=== PATIENT | female | born 2005 | race Caucasian/White ===

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

== ENCOUNTER 2024-03-22 14:35 | Emergency (ER) | payer OTHER, SELFPAY ==
[2024-03-22 15:15] VITALS: BP 120/69; PULSE 77; RESP 20; TEMP 36.9; O2SAT 96; BMI 27.3
--- NOTE | 2024-03-22 15:29 | ED_ITS ---
Discharge Plan Disposition Patient Disposition: Home, Self-Care Condition: Good Prescriptions Prescriptions: New azithromycin [Zithromax Z-Turner] 250 mg tablet See Rx Instructions .ROUTE .COMPLEX 5 Days Qty: 6 0RF Rx Instructions: For 250 mg dose pack: take 500 mg today (day 1), then 250 mg for 4 days (days 2-5) methylprednisolone [Medrol (Turner)] 4 mg tablets,dose pack See Rx Instructions .Route .COMPLEX 6 Days Qty: 21 0RF Rx Instructions: taper pack; Referrals Follow up/Referrals: Provider,Referral, MD [Primary Care Provider] - See instructions Activity Restrictions/Add. Instructions Additional Instructions/Restrictions: *Monitor Temp, Over the counter Motrin or Tylenol as directed/as needed Tylenol every 4 hours and Motrin every 6 hours (as long as your family doctor has told you that you can take it) for fever or pain. and straight to ER if unable to lower temp less than 101.0 after medication given *Warm salt water gargles may help to soothe the throat *Throat Lozenges? *Warm fluids like tea with honey may help to soothe the throat? *Sleep elevated *Humidifier/Vaporizer Take medication as prescribed Follow up IMMEDIATELY for new or worsening symptoms or no Noticeable improvement over the next 48-72 hours. 911 for difficulty breathing or swallowing Clinical Impressions Clinical Impression: Sinusitis Instructions Patient Instructions: DI for Sinusitis, Sinusitis Print Language Print Language: Icelandic Discharge ED Provider: Rachel Castaneda [facility] General Stated complaint: head congestion cough Mode of Arrival: Ambulatory Source of Information: Patient Limitations: No Limitations Time Seen by Provider: 03/22/24 15:29 Description of Symptoms (Recalled from Triage Doc. by RN): PATIENT C/O CONGESTION AND COUGH X 1 WEEK HEENT Symptoms (Recalled from RN notes): Yes Resp Symptoms (Recalled from RN notes): Yes Skin Symptoms (Recalled from RN notes): No MS Symptoms (Recalled from RN notes): No Functional Status (Recalled from RN notes): WNL History of Present Illness Provider Complaint: Patient states that she has been having sinus pain and pressure under her eyes, head congestion and cough for about a week now States today wasnt any better so she came in to get checked Related Data Previous Rx's ?Medication ?Instructions ?Recorded azithromycin 250 mg tablet See Rx Instructions PO .COMPLEX 5 03/22/24 (Zithromax Z-Turner) days #6 tabs methylprednisolone 4 mg tablets in See Rx Instructions .Route 03/22/24 a dose pack (Medrol (Turner)) .COMPLEX 6 days #21 tabs Allergies Allergy/AdvReac Type Severity Reaction Status Date / Time Penicillins Allergy Intermediate Hives Verified 01/19/23 17:51 Worker's Comp Is this a Worker's Comp case?: No PFSH [facility] Disclaimer: The information contained in this section may have been updated after the patient was seen, as this information can be updated by other users. Medical History (Updated 03/22/24 @ 15:39 by Rachel Castaneda APRN) Pelvic pain Depression Anxiety Asthma Surgical History No history of previous surgery Family History Other No significant family history Social History Smoking Status: Never smoker alcohol intake: never substance use type: denies use current occupational status: student Travel in the last 8 weeks: None Have you lived/traveled outside US in past 30 days?: No Contact w/someone who lives/traveled outside US past 30 days?: No Exposure to someone with infectious disease in past 14 days?: No Do you have a fever (greater than 100.4 F or 38 C)?: No Have you tested positive for COVID-19: No Exposed to someone with COVID-19 in past 14 days?: No Do you have a sore throat?: No Do you have a cough?: Yes Do you have any weakness?: No Do you have any diarrhea?: No Are you experiencing any unusual bleeding?: No Do you have any muscle aches/pain?: No Do you have any abdominal pain?: No Are you experiencing loss of taste or smell?: No ROS Obtained: Yes All systems reviewed & no additional complaints except as d ocumented and Yes Systems reviewed as appropriate & no additional complaints except as documented Constitutional Constitutional: Reports system reviewed and no additional complaints, except as documented and Reports as per HPI ENT Ears, Nose, Mouth, and Throat: Reports system reviewed and no additional complaints, except as documented, Reports as per HPI, Reports sinus pain and Reports sinus pressure Cardiovascular Cardiovascular: Reports system reviewed and no additional complaints, except as documented and Reports as per HPI Respiratory Respiratory: Reports system reviewed and no additional complaints, except as documented, Reports as per HPI and Reports cough Gastrointestinal Gastrointestingal: Reports system reviewed and no additional complaints, except as documented and as per HPI Physical Exam General General appearance: alert and in no apparent distress ENT ENT exam: Present mucous membranes moist Expanded ENT Exam Nose exam: Present sinus tenderness Throat exam: Present other (PND noted ) Respiratory Respiratory exam: Present normal lung sounds bilaterally; Absent respiratory distress or wheezes Cardiovascular Cardiovascular exam: Present regular rate, normal rhythm and normal heart sounds Abdominal Exam Abdominal exam: Present soft and normal bowel sounds; Absent distention or tenderness Neurological Exam Neurological exam: Present alert, oriented X3 and normal gait Medical Decision Making Medical Records Screening: Per USPSTF and CDC recommendations, given the prevalence of disease in our region, it is our hospital?s policy to screen for HIV and viral Hepatitis for all patients aged 18 and over and those with ongoing risk factors. Amrco Antonio Inquiry Pt receiving controlled substance: No Marco Antonio was queried for this patient: No Vital Signs: 03/22/24 15:15 Temperature 98.4 F Temperature Source Oral Pulse Rate [Left Brachial] 77 Respiratory Rate 20 Blood Pressure [Left Arm] 120/69 Blood Pressure Mean [Left Arm] 86 Blood Pressure Source [Left Arm] Automatic Cuff Blood Pressure Position [Left Arm] Sitting 02 Sat by Pulse Oximetry 96 Oxygen Delivery Method Room Air
[2024-03-22 15:43] VITALS: BP 120/69; PULSE 77; RESP 20; TEMP 36.9; O2SAT 96
== END 2024-03-22 15:48 | disposition home or self-care (01) ==
PROVIDERS: Emergency Provider Nurse Practitioner
DX: J01.90 Acute sinusitis, unspecified (principal); R09.81 Nasal congestion; R05.9 Cough, unspecified
CPT/HCPCS: 99212; G0381

== ENCOUNTER 2024-07-27 09:50 | Emergency (ER) | payer OTHER, SELFPAY ==
[2024-07-27 09:58] VITALS: BP 132/89; PULSE 101; RESP 18; TEMP 37; O2SAT 98; BMI 27.3
--- NOTE | 2024-07-27 10:19 | ED_ITS ---
<Statement entered by Seema Puentes DO - 07/27/24 11:19> I was consulted by the [place], and we discussed the complexity of the problems being addressed. I approved the treatment and management plan for this patient's care in the emergency department, thus performing a substantive portion of the medical decision making. 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 Seema Puentes DO Discharge Plan Disposition Patient Disposition: Home, Self-Care Condition: Good Prescriptions Prescriptions: New ondansetron 4 mg tablet,disintegrating 4 mg PO Q8H PRN (Reason: nausea and vomiting) Qty: 10 0RF No Action sertraline 50 mg tablet PO ergocalciferol (vitamin D2) 1,250 mcg (50,000 unit) capsule PO Referrals Follow up/Referrals: Sushma Ham APRN [Primary Care Provider] - See instructions Activity Restrictions/Add. Instructions Additional Instructions/Restrictions: Monitor temperature. Seek treatment if fever develops. Follow-up immediately if new or worse symptoms worsen or no noticeable improvement over 48 hours. Increase fluids such as water, Gatorade, Powerade, juice or Pedialyte with limited formula/dietary in children No food is okay as long as you are drinking. Once ready to eat start bland such as bananas, rice, applesauce, toast. Contagious until no diarrhea, vomiting, fever times 48 hours without medication Avoid antidiarrheals unless told otherwise. Best to let the virus run its course. Follow-up immediately for new or worsening symptoms or no noticeable improvement over the next 48 hours. Clinical Impressions Clinical Impression: Vomiting Qualifiers: Vomiting type: unspecified Nausea presence: without nausea Qualified Code(s): R11.11 - Vomiting without nausea Instructions Patient Instructions: DI for Vomiting -- Adult Print Language Print Language: Greek Discharge ED Provider: Seema Puentes General Adult HPI General Chief complaint: Recheck/Abnormal Lab/Rx Stated complaint: overheated, vomiting Time Seen by Provider: 07/27/24 10:06 Mode of Arrival: Ambulatory Source of Information: Patient Description of Symptoms (Recalled from ER Triage Doc. by RN): pt presents to the ED after overheating yesterday and vomiting x3. pt reports she feels okay today and has no complaints. pt's reports her mother is concerned and wants her to be checked out. History of Present Illness HPI narrative: 19-year-old female presents for overheating yesterday at her boyfriend's house and vomiting 3 times. Patient states no complaints today and she is feeling fine she just wanted checked out to see if she had a stomach virus Related Data Home Medications ?Medication ?Instructions ?Recorded ?Confirmed ergocalciferol (vitamin D2) 1,250 PO 05/16/24 05/16/24 mcg (50,000 unit) capsule sertraline 50 mg tablet mg PO 05/16/24 05/16/24 Previous Rx's ?Medication ?Instructions ?Recorded ondansetron 4 mg disintegrating 4 mg PO Q8H PRN nausea and 07/27/24 tablet vomiting #10 tabs Allergies Allergy/AdvReac Type Severity Reaction Status Date / Time Penicillins Allergy Intermediate Hives Verified 05/16/24 11:05 [facility] Disclaimer: The information contained in this section may have been updated after the patient was seen, as this information can be updated by other users. Medical History , [employer]) Pelvic pain Depression Anxiety Asthma Surgical History , [employer]ELD [employer]IE[employer]) No history of previous surgery Family History , [employer]F) No significant family history Social History , [employer]) Smoking Status: Never smoker alcohol intake: never substance use type: denies use current occupational status: student Travel in the last 8 weeks?: None Have you lived/traveled outside US in past 30 days?: No Contact w/someone who lives/traveled outside US past 30 days?: No Exposure to someone with infectious disease in past 14 days?: No Do you have a fever (greater than 100.4 F or 38 C)?: No Have you tested positive for COVID-19?: No Exposed to someone with COVID-19 in past 14 days?: No Do you have a sore throat?: No Do you have a cough?: No Do you have any weakness?: No Do you have any diarrhea?: No Are you experiencing any unusual bleeding?: No Do you have any muscle aches/pain?: No Do you have any abdominal pain?: No Are you experiencing loss of taste or smell?: No Other Medical History Have you received the Flu Vaccine for this season: No Have you received the Pneumonia Vaccine: No ROS Obtained: Yes Systems reviewed as appropriate & no additional complaints except as documented Physical Exam General General appearance: alert and in no apparent distress ENT ENT exam: Present normal exam Respiratory Respiratory exam: Present normal lung sounds bilaterally Cardiovascular Cardiovascular exam: Present regular rate and normal rhythm Abdominal Exam Abdominal exam: Present soft and normal bowel sounds; Absent distention or tenderness Neurological Exam Neurological exam: Present alert and oriented X3 Skin Skin exam: Present warm and intact Medical Decision Making Medical Records Medical records reviewed: Yes I reviewed the patient's medical records. Screening: Per USPSTF and CDC recommendations, given the prevalence of disease in our region, it is our hospital?s policy to screen for HIV and viral Hepatitis for all patients aged 18 and over and those with ongoing risk factors. Marco Antonio Inquiry Pt receiving controlled substance: No Marco Antonio was queried for this patient: No Vital Signs: 07/27/24 09:58 Temperature 98.6 F Temperature Source Oral Pulse Rate [Right] 101 H Respiratory Rate 18 Blood Pressure [Right Arm] 132/89 Blood Pressure Mean [Right Arm] 103 Blood Pressure Source [Right Arm] Automatic Cuff Blood Pressure Position [Right Arm] Supine 02 Sat by Pulse Oximetry 98 Oxygen Delivery Method Room Air Medical Decision Narrative: In summary patient is a 19-year-old female who presents to the emergency department for evaluation of vomiting x 3 yesterday and overheating.. Patient is hemodynamically stable upon arrival, afebrile. Unremarkable physical exam. Differential diagnosis includes overeating, viral syndrome. Upon repeat evaluation patient is asymptomatic and symptoms have resolved completely. Given this patient appropriate discharge at this time will discharge home with some Zofran and instructions to return if symptoms return. Critical Care Critical Care Time Critical Care Time: No
[2024-07-27 11:04] VITALS: BP 122/93; PULSE 110; RESP 17; TEMP 36.8; O2SAT 97
== END 2024-07-27 11:05 | disposition home or self-care (01) ==
PROVIDERS: Emergency Provider Emergency Medicine; PCP Nurse Practitioner Family
DX: R11.11 Vomiting without nausea (principal)
CPT/HCPCS: 99283

== ENCOUNTER 2025-02-24 17:50 | Emergency (ER) | payer OTHER, SELFPAY ==
[2025-02-24 17:54] VITALS: BP 136/97; PULSE 114; RESP 18; TEMP 37.2; O2SAT 98; BMI 29.4
[2025-02-24 17:57] VITALS: BP 137/80; PULSE 99; RESP 16; O2SAT 100
[2025-02-24 18:04] LABS: Coronavirus 19, PCR Not Detected (NotDetected); Influenza A, PCR Not Detected (NotDetected); Influenza B, PCR Not Detected (NotDetected)
--- NOTE | 2025-02-24 18:11 | ED_ITS ---
<Statement entered by Ayden Last DO - 02/24/25 23:25> I was consulted by the [place], and we discussed the complexity of problems being addressed. I approved the treatment and management plan for this patient's care in the emergency department, thus performing a substantive portion of the medical decision making. Ayden Last DO Discharge Plan Disposition Patient Disposition: Home, Self-Care Condition: Good Prescriptions Prescriptions: No Action sertraline 50 mg tablet PO ergocalciferol (vitamin D2) 1,250 mcg (50,000 unit) capsule PO buspirone 5 mg tablet 5 mg PO Patient Comments: TAKE ONE TABLET BY MOUTH 2 TIMES A DAY ondansetron 8 mg tablet,disintegrating 8 mg PO Q12H PRN (Reason: nausea and vomiting) Qty: 7 0RF Referrals Follow up/Referrals: Sushma Ham APRN [Primary Care Provider, Medical] - See instructions Activity Restrictions/Add. Instructions Additional Instructions/Restrictions: Please return to the emergency department with any worsening signs or symptoms. Please follow-up with your PCP in the upcoming days/weeks. I recommend [id number] cold and flu medications as needed for symptomatic relief. I recommend anti-inflammatory medications, such as ibuprofen and Tylenol as needed for symptomatic relief. Clinical Impressions Clinical Impression: Viral upper respiratory infection Instructions Patient Instructions: DI for Viral Upper Respiratory Infection in Adults, Viral Pharyngitis Print Language Print Language: Wallisian Discharge ED Provider: Ayden Last General Adult HPI General Chief complaint: Sore Throat Stated complaint: poss strep, hurts to swallow, cough Time Seen by Provider: 02/24/25 18:04 Mode of Arrival: Ambulatory Source of Information: Patient Description of Symptoms (Recalled from ER Triage Doc. by RN): PT presents with c/o sore throat and trouble swallowing around 2 days ago as well as bilateral knee pain. History of Present Illness HPI narrative: 19-year-old female presents the emergency department with a 2-day history of nonproductive cough congestion subjective fever chills fatigue malaise, as well as sore throat difficulty swallowing. 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 Patient denies any overt radicular symptomatology, no saddle anesthesia, no urinary bladder or bowel dysfunction. Patient has no other real relevant past medical history with the exception of LORETTA/MDD for which she takes medications for at home. Initial triage vitals are unremarkable. Please note that above description of symptoms, in this electronic medical record under categorization of recalled from ER triage doctor by RN are reflective of an initial nursing assessment, however, is not reflective of my full history and physical exam that was personally taken and clarified. Consequentially, this preceding description of symptoms, which may include the patient's categorized chief complaint in the EMR, do not reflect my personal clinical impression, and the ultimate description of history of present illness and patient stated complaints should be deferred to this section of the note. Unless stated otherwise or congruent with this section of the note, additional signs, symptoms, or incongruence should be interpreted as inaccurate with my clinical impression. Onset (ago): day(s) Related Data Home Medications ?Medication ?Instructions ?Recorded ?Confirmed ergocalciferol (vitamin D2) 1,250 PO 05/16/24 10/28/24 mcg (50,000 unit) capsule sertraline 50 mg tablet mg PO 05/16/24 10/28/24 buspirone 5 mg tablet 5 mg PO 10/28/24 10/28/24 Previous Rx's ?Medication ?Instructions ?Recorded ondansetron 8 mg disintegrating 8 mg PO Q12H PRN nause a and 10/28/24 tablet vomiting #7 tabs Allergies Allergy/AdvReac Type Severity Reaction Status Date / Time Penicillins Allergy Intermediate Hives Verified 10/28/24 08:14 [facility] Disclaimer: The information contained in this section may have been updated after the patient was seen, as this information can be updated by other users. Medical History Pelvic pain Depression Anxiety Asthma Surgical History No history of previous surgery Family History Other No significant family history Social History Smoking Status: Never smoker alcohol intake: never substance use type: denies use current occupational status: student Travel in the last 8 weeks?: None Have you lived/traveled outside US in past 30 days?: No Contact w/someone who lives/traveled outside US past 30 days?: No Exposure to someone with infectious disease in past 14 days?: No Do you have a fever (greater than 100.4 F or 38 C)?: No Have you tested positive for COVID-19?: No Exposed to someone with COVID-19 in past 14 days?: No Do you have a sore throat?: No Do you have a cough?: No Do you have any weakness?: No Do you have any diarrhea?: No Are you experiencing any unusual bleeding?: No Do you have any muscle aches/pain?: No Do you have any abdominal pain?: No Are you experiencing loss of taste or smell?: No Other Medical History Have you received the Flu Vaccine for this season: No Have you received the Pneumonia Vaccine: No ROS Obtained: Yes All systems reviewed & no additional complaints except as documented Physical Exam General General appearance: alert and in no apparent distress Head Head exam: atraumatic and normocephalic Eye Eye exam: Present PERRL and EOMI ENT ENT exam: Present normal oropharynx, mucous membranes moist and other (Patient has some external auditory canal debris, looks like previous trauma to the external auditory canal, patient tells me she does utilize Q-tips, no signs of definitive millimeter perforation, some serous otitis media on the right, no erythema no tympanic membrane bulging, no signs of otitis med); Absent TM's normal bilaterally Expanded ENT Exam Mouth exam: Present normal external inspection and other (Uvula midline, no tonsillar erythema no tonsillar exudates, peritonsillar abscess formation) Neck Neck exam: Present normal inspection Chest Chest inspection: Present normal inspection and symmetric chest wall rise Respiratory Respiratory exam: Present normal lung sounds bilaterally; Absent respiratory distress Cardiovascular Cardiovascular exam: Present regular rate and normal rhythm Abdominal Exam Abdominal exam: Present soft; Absent tenderness Extremities Exam Extremities exam: Present normal inspection Neurological Exam Neurological exam: Present alert and oriented X3 Psychiatric Psychiatric exam: Present normal affect Skin Skin exam: Present warm and dry Medical Decision Making Medical Records Medical records reviewed: Yes I reviewed the patient's medical records. Screening: Per USPSTF and CDC recommendations, given the prevalence of disease in our region, it is our hospital?s policy to screen for HIV and viral Hepatitis for all patients aged 18 and over and those with ongoing risk factors. Marco Antonio Inquiry Pt receiving controlled substance: No Marco Antonio was queried for this patient: No Vital Signs: 02/24/25 17:54 02/24/25 17:57 Temperature 99.0 F Temperature Source Oral Pulse Rate 99 H Pulse Rate [Right] 114 H Respiratory Rate 18 16 Blood Pressure 137/80 Blood Pressure [Right Arm] 136/97 H Blood Pressure Mean [Right Arm] 110 Blood Pressure Source Automatic Cuff Blood Pressure Source [Right Arm] Automatic Cuff Blood Pressure Position Sitting Blood Pressure Position [Right Arm] Sitting 02 Sat by Pulse Oximetry 98 100 Oxygen Delivery Method Room Air Room Air Lab Data Lab Results 02/24/25 17:59: SARS-CoV-2 (PCR) Not detected, Influenza A Untype (PCR) Not detected, Influenza Type B (PCR) Not detected, Group A Strep Rapid Negative Orders (Tests/Meds): ORDERS Category Date Time Status Rapid PCR Covid and Flu A/B Stat Lab 02/24/25 17:59 Completed Strep Scrn Group A (Rapid) Stat Lab 02/24/25 17:59 Completed Strep Screen Confirmation Stat Micro 02/24/25 17:59 Received Medical Decision Narrative: 19-year-old female presents the emergency department with cough congestion and sore throat, for the last 2 days, differential diagnose include but not limited to, viral pharyngitis, streptococcal pharyngitis, viral URI, serous otitis media among others. Will obtain rapid PCR COVID and flu, group A rapid strep swab. Group A rapid strep is negative Rapid PCR COVID and flu are negative. I discussed the results with the patient at the bedside, patient has remained hemodynamically stable without her time in the emergency department. Most likely has nonspecific viral URI, patient able to tolerate p.o. intake. Recommend [id number] cold flu medication as needed for symptomatic relief. Patient was given strict return precautions. Patient was advised not to use Q- tips for self cleaning of her ears due to your trauma. Patient voiced understanding and agreement with current treatment plan/discharge plan. Critical Care Critical Care Time Critical Care Time: No
[2025-02-24 18:22] LABS: Strep Scrn Group A (Rapid) Negative (Negative)
[2025-02-24 18:54] VITALS: BP 137/80; PULSE 99; RESP 16; TEMP 37.2; O2SAT 100
== END 2025-02-24 18:55 | disposition home or self-care (01) ==
PROVIDERS: Emergency Provider Student in an Organized Health Care Education/Training Program; PCP Nurse Practitioner Family
DX: R07.0 Pain in throat (principal); R11.0 Nausea; J06.9 Acute upper respiratory infection, unspecified; B34.9 Viral infection, unspecified
CPT/HCPCS: 87430; 87636; 99283

== ENCOUNTER 2025-02-26 07:14 | Emergency (ER) | payer OTHER, SELFPAY ==
[2025-02-26 07:15] VITALS: BP 118/85; PULSE 135; RESP 14; TEMP 37.1; O2SAT 99; BMI 29.4
[2025-02-26 07:19] VITALS: BP 118/85; PULSE 146; O2SAT 98
--- NOTE | 2025-02-26 07:29 | ECG_ITS ---
APPROVED REPORT Exam: Resting ECG HR:117 bpm ECG Measurements Heart Rate 117 AXES [place] 151 P 63 QRSd 77 QRS 39 QT 308 T 65 QTc 377 Conclusion SINUS TACHYCARDIA ABNORMAL RHYTHM ECG No STEMI Electronically signed by : RENAN GONZALES, 03/02/2025 03:01:58
[2025-02-26 07:30] VITALS: BP 113/93; PULSE 122; O2SAT 99
[2025-02-26 08:00] VITALS: BP 112/83; PULSE 110; O2SAT 98
--- NOTE | 2025-02-26 08:11 | [facility].EDGENADL ---
Discharge Plan Disposition Patient Disposition: Home, Self-Care Prescriptions Prescriptions: New ciprofloxacin-dexamethasone 0.3-0.1 % drops,suspension 4 drp otic (ear) BID Qty: 7.5 0RF Debrox 6.5 % drops 5 drp otic (ear) DAILY 4 Days Qty: 15 0RF No Action sertraline 50 mg tablet PO ergocalciferol (vitamin D2) 1,250 mcg (50,000 unit) capsule PO buspirone 5 mg tablet 5 mg PO Patient Comments: TAKE ONE TABLET BY MOUTH 2 TIMES A DAY ondansetron 8 mg tablet,disintegrating 8 mg PO Q12H PRN (Reason: nausea and vomiting) Qty: 7 0RF Referrals Follow up/Referrals: Sushma Ham APRN [Primary Care Provider, Medical] - See instructions Activity Restrictions/Add. Instructions Additional Instructions/Restrictions: You have been given a prescription for left otitis media, questionable tympanic membrane perforation, and left cerumen impaction. please take as prescribed and follow-up with your pcp for failure of improvement. your heart rate was mildly elevated during your visit, this may be a side effect of your medications as this has been demonstrated on prior visits as well. your ecg was reassuring today, but would continue to communicate with your pcp regarding this Clinical Impressions Clinical Impression: Otitis media Instructions Patient Instructions: DI for Cerumen Impaction, DI for Tympanic Membrane Perforation in Adults Print Language Print Language: Serbian Discharge ED Provider: Dhaval Fenton Adult HPI General Chief complaint: Ear Stated complaint: Ear pain x2, cough Time Seen by Provider: 02/26/25 07:20 Mode of Arrival: Ambulatory Source of Information: Patient Description of Symptoms (Recalled from ER Triage Doc. by RN): pt c/o bilateral ear pain that is worse in the L. pt states she was seen recently but the pain is increasing. she is not on an antibiotic. LMP end January. History of Present Illness HPI narrative: Patient 19-year-old female with history of anxiety and multiple prior infections who presents with worsening left ear pain Diagnosis: Upper respiratory infection several days ago. She states that she used a Q-tip hydroperoxide this morning with worsening of pain in her left ear and inability to keep. She denies fevers chills abdominal pain but has had nausea this morning. She has multiple prior left ear infections and a penicillin allergy with hives. Related Data Home Medications ?Medication ?Instructions ?Recorded ?Confirmed ergocalciferol (vitamin D2) 1,250 PO 05/16/24 10/28/24 mcg (50,000 unit) capsule sertraline 50 mg tablet mg PO 05/16/24 10/28/24 buspirone 5 mg tablet 5 mg PO 10/28/24 10/28/24 Previous Rx's ?Medication ?Instructions ?Recorded ondansetron 8 mg disintegrating 8 mg PO Q12H PRN nausea and 10/28/24 tablet vomiting #7 tabs carbamide peroxide 6.5 % ear drops 5 drp otic (ear) DAILY 4 days #15 02/26/25 (Debrox) mL ciprofloxacin 0.3 %-dexamethasone 4 drp otic (ear) BID #7.5 mL 02/26/25 0.1 % ear drops,suspension Allergies Allergy/AdvReac Type Severity Reaction Status Date / Time Penicillins Allergy Intermediate Hives Verified 02/26/25 07:43 [facility] Disclaimer: The information contained in this section may have been updated after the patient was seen, as this information can be updated by other users. Medical History Pelvic pain Depression Anxiety Asthma Surgical History No history of previous surgery Family History Other No significant family history Social History Smoking Status: Never smoker alcohol intake: never substance use type: denies use current occupational status: student Travel in the last 8 weeks?: None Have you lived/traveled outside [place] in past 30 days?: No Contact w/someone who lives/traveled outside [place] past 30 days?: No Exposure to someone with infectious disease in past 14 days?: No Do you have a fever (greater than 100.4 F or 38 C)?: No Have you tested positive for COVID-19?: No Exposed to someone with COVID-19 in past 14 days?: No Do you have a sore throat?: No Do you have a cough?: Yes Do you have any weakness?: No Do you have any diarrhea?: No Are you experiencing any unusual bleeding?: No Do you have any muscle aches/pain?: No Do you have any abdominal pain?: No Are you experiencing loss of taste or smell?: No Other Medical History Have you received the Flu Vaccine for this season: No Have you received the Pneumonia Vaccine: No ROS Obtained: Yes Systems reviewed as appropriate & no additional complaints except as documented Physical Exam General General appearance: alert Head Head exam: atraumatic Eye Eye exam: Present normal appearance ENT ENT exam: Present other (Left cerumen impaction tympanic membrane difficult to visualize, right-sided tympanic membrane with appropriate light reflex) Respiratory Respiratory exam: Present other (Appropriate effort on room air) Cardiovascular Cardiovascular exam: Present tachycardia Abdominal Exam Abdominal exam: Present other (Nondistended) Extremities Exam Extremities exam: Present normal inspection Neurological Exam Neurological exam: Present alert and oriented X3 Psychiatric Psychiatric exam: Present anxious Skin Skin exam: Present warm Lymphatic Lymphatic Findings: no adenopathy Medical Decision Making Medical Records Medical records reviewed: Yes I reviewed the patient's medical records. Screening: Per USPSTF and CDC recommendations, given the prevalence of disease in our region, it is our hospital?s policy to screen for HIV and viral Hepatitis for all patients aged 18 and over and those with ongoing risk factors. Marco Antonio Inquiry Pt receiving controlled substance: No Vital Signs: 02/26/25 07:15 02/26/25 07:19 02/26/25 07:30 Temperature 98.7 F Temperature Source Oral Pulse Rate 146 H 122 H Pulse Rate [Left] 135 H Respiratory Rate 14 Blood Pressure 118/85 113/93 H Blood Pressure [Right Arm] 118/85 Blood Pressure Mean [Right Arm] 96 Blood Pressure Source [Right Arm] Automatic Cuff Blood Pressure Position [Right Arm] Sitting 02 Sat by Pulse Oximetry 99 98 99 Oxygen Delivery Method Room Air 02/26/25 08:00 Temperature Temperature Source Pulse Rate 110 H Pulse Rate [Left] Respiratory Rate Blood Pressure 112/83 Blood Pressure [Right Arm] Blood Pressure Mean [Right Arm] Blood Pressure Source [Right Arm] Blood Pressure Position [Right Arm] 02 Sat by Pulse Oximetry 98 Oxygen Delivery Method Room Air Medical Decision Narrative: This patient has worsening left ear pain, difficult to visualize tympanic membrane, cerumen impaction that was difficult to clear and decompressed left ear despite cerumen disimpaction after using a Q-tip. Given her history for tympanic perforation overlying otitis media secondary to [place] infection. Given her history of penicillin allergy as well feel risks treated with Ciprodex drops are outweighed by the benefits and discussed this with the patient. Prescribe Ciprodex drops as well as Debrox drops for further difficulties with cerumen impaction noted that she should follow-up with her PCP should this fail to resolve in the next 1 to 2 weeks for further evaluation. Also noted that was considered Sudafed prescription given her tachycardia felt the risks outweighed the benefits of this and advised to follow-up with PCP prior ED notes. Critical Care Critical Care Time Critical Care Time: No
[2025-02-26 08:31] VITALS: BP 122/92; PULSE 114; O2SAT 99
[2025-02-26 08:40] VITALS: BP 122/85; PULSE 115; RESP 15; TEMP 36.9; O2SAT 99
== END 2025-02-26 08:40 | disposition home or self-care (01) ==
PROVIDERS: Emergency Provider Student in an Organized Health Care Education/Training Program; PCP Nurse Practitioner Family
DX: H66.92 Otitis media, unspecified, left ear (principal); H92.03 Otalgia, bilateral; R00.0 Tachycardia, unspecified
CPT/HCPCS: 93005; 99283; 99284